=== PATIENT | male | born 2000 | race Caucasian/White ===

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

== ENCOUNTER 2022-10-24 08:08 | Emergency (ER) | payer BC ==
[~2022-10-24] VITALS: Ht 190.5 cm; Wt 72.5 kg
[2022-10-24 08:19] VITALS: BP 130/75
--- NOTE | 2022-10-24 08:32 | ED EENT ---
History of Present Illness General Chief Complaint: Ear Problems Stated Complaint: UNABLE TO HEAR OUT OF LEFT EAR Nursing Triage Note: Pt ambulatory to room 5. Pt states was cleaning ears last night and jammed wax in his ears. Hard to hear out of left ear. Source: patient Exam Limitations: no limitations History of Present Illness Date Seen by Provider: Oct 24, 2022 Time Seen by Provider: 08:22 Initial Comments 21-year-old male presents emergency department today for decreased hearing in his left ear. He was using a Q-tip to clean his left ear and believes he pushed the wax deeper into his ear. He has not been able to get it out and now having hard time hearing from that side. No drainage. No fevers or chills. No pain. All other systems reviewed and negative except documented per HPI. Voice recognition software was used to help create this chart Allergies and Home Medications Allergies Coded Allergies: Penicillins (Verified Allergy, Mild, HIVES, 09/07/17) Patient Home Medication List Home Medication List Reviewed: Yes Review of Systems Review of Systems Constitutional: see HPI Past Naycpvq-Vbhomw-Sbmaoi Hx Patient Social History Tobacco Use?: Yes Tobacco type used: Cigarettes Use of E-Cig and/or Vaping dev: Yes E-Cig or Vaping type used: Nicotine Use of E-Cig and/or Vaping [place]: Current Everyday User Substance use?: Yes Substance type: Marijuana, Other Additional substance use comme: kratom Alcohol Use?: Yes Pt feels they are or have been: No Physical Exam Vital Signs Vital Signs - First Documented 10/24/22 08:19 Temp 36.9 Pulse 85 Resp 16 B/P (MAP) 130/75 (93) Pulse Ox 98 O2 Delivery Room Air Height, Weight, BMI Height: 6'3.00" Weight: 170lbs. 0.0oz. [id number]; 19.00 BMI Method: General Appearance: WD/WN, no apparent distress Eyes: bilateral eye normal inspection, bilateral eye PERRL, bilateral eye EOMI Ears: right ear auricle normal, right ear canal normal, right ear TM normal; left ear other (Cerumen impaction left ear) Progress/Results/Core Measures Results/Orders Vital Signs/I&O 10/24/22 08:19 Temp 36.9 Pulse 85 Resp 16 B/P (MAP) 130/75 (93) Pulse Ox 98 O2 Delivery Room Air Blood Pressure Mean: 93 Departure Communication (Admissions) Patient is hemodynamically stable. No evidence for infection. cerumen impaction. Flushing relieve the impaction. Discharged in stable condition Impression Primary Impression: Impacted cerumen Qualified Codes: H61.22 - Impacted cerumen, left ear Disposition: HOME, SELF-CARE Condition: Stable Departure-Patient Inst. Referrals: MICHAEL MENDOZA MD (PCP/Family) Primary Care Physician Patient Instructions: How to Use Ear Drops, Ear Wax Impaction (DC) CHRIS SHERIDAN DO Oct 24, 2022 08:32
== END 2022-10-24 08:37 | disposition home or self-care (01) ==
LOC: EDUNIT# 08:08 → ER 08:10
DX: H61.22 Impacted cerumen, left ear (principal); F17.210 Nicotine dependence, cigarettes, uncomplicated; F17.290 Nicotine dependence, other tobacco product, uncomplicated
CPT/HCPCS: 99281

== ENCOUNTER → 2022-12-13 | Outpatient (CLI) | payer BC ==
[~2022-12-13] MED LIST changes: -ATROPINE INJECTION 1 MG/10 ML SYR (ABBOTT) ONE; +BARIUM for suspension 96% w/w (Vanilla Silq Medium Density) PO ONE; +BARIUM for suspension 98% w/w (Vanilla Silq High Density) PO ONE; -NS IV 1000 ML 1,000 ML ONE
--- NOTE | 2022-12-13 12:37 | Diagnostic Imaging Report ---
INDICATION: Abdominal cramping and unable able to get liquid or solid food down as well as vomiting. Patient ingested effervescent crystals as well as thin and thick barium and imaging of the esophagus, stomach and proximal small bowel was performed. 57 seconds of fluoroscopic time is utilized. Reference air Kerma is 36.6 mGy. 31 images were obtained. Preliminary radiograph of the abdomen is unremarkable. The esophagus has a smooth contour. No mass or stricture is identified. No hiatal hernia or gastroesophageal reflux was demonstrated. The stomach is normal in configuration. There is prompt emptying of barium into the proximal small bowel. Duodenal bulb is without deformity. The proximal small bowel loops are normal caliber. Mucosal fold patterns unremarkable. IMPRESSION: Unremarkable upper GI study. Dictated by: Dictated on workstation # [id number]
== END ==
LOC: RAD 11:15
PROVIDERS: ATTEND Family Medicine
DX: R10.13 Epigastric pain (principal)
CPT/HCPCS: 74246